=== PATIENT | male | born 2000 | race Asian ===

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

== ENCOUNTER 2022-10-01 19:21 | Emergency (ER) | payer OTHER ==
[2022-10-01 19:42] VITALS: BP 126/70; PULSE 102; RESP 18; TEMP 99; BMI 25.9
[2022-10-01 21:12] LABS: EOS % 1.4 % (0-4.5); HEMATOCRIT 41.7 % (35.4-49); HEMOGLOBIN 14.1 GM/dL (11.7-16.9); LYMPH % 21.4 % (8-40); MCH 29.8 pg (25.7-33.7); MCHC 33.9 g/dl (32.0-35.9); MEAN CELL VOLUME 87.9 fl (80-96); MEAN PLT VOLUME 8.3 fl (7.5-11.1); NEUT % 68.2 % (42.8-82.8); PLATELET COUNT 280 10^3/uL (134-434); RBC 4.75 M/mm3 (4.00-5.60); RDW 13.5 % (11.9-15.9); WHITE BLOOD COUNT 11.9 K/mm3 (4.0-10.0)
[2022-10-01 21:33] LABS: POTASSIUM 3.8 mmol/L (3.5-5.1)
[2022-10-01 21:36] LABS: CALCIUM 8.9 mg/dL (8.5-10.1)
[2022-10-01 21:37] LABS: ALBUMIN 4.2 g/dl (3.4-5.0); BLOOD UREA NITROGEN 11.1 mg/dL (7-18)
[2022-10-01 21:40] LABS: CREATININE 1.1 mg/dL (0.55-1.3)
[2022-10-01 21:41] LABS: BILIRUBIN,TOTAL 0.2 mg/dL (0.2-1)
[2022-10-01 21:42] LABS: TOT PROT 7.2 g/dl (6.4-8.2)
== END 2022-10-01 23:55 | disposition home or self-care (01) ==
LOC: JERFT 19:21
DX: R07.9 Chest pain, unspecified (principal); R06.02 Shortness of breath; R00.0 Tachycardia, unspecified
CPT/HCPCS: 36415; 71046-TC-FY; 71275-TC; 80053; 82550; 82553; 84484; 85025; 93005; 93010; 99285-25

== ENCOUNTER 2022-10-08 20:53 | Emergency (ER) | payer OTHER ==
[2022-10-08 21:06] VITALS: BP 137/84; PULSE 84; RESP 18; TEMP 98.4; BMI 25.1
== END 2022-10-08 23:18 | disposition home or self-care (01) ==
LOC: JER 20:53 → JERFT 20:53
DX: R07.2 Precordial pain (principal); R42 Dizziness and giddiness
CPT/HCPCS: 93005; 93010; 99283-25